=== PATIENT | female | born 1990 | race African-American/Black ===

== ENCOUNTER 2017-03-19 11:38 | Emergency (ER) | payer OTHER ==
[~2017-03-19] VITALS: Ht 165.1 cm; Wt 143.3 kg
[~2017-03-19 11:38] MED LIST: BACTRIM DS TAB1 EACH PO; IBUPROFEN 800800 MG PO; MEDROLDOSEPACK PO; NAPROSYN500 MG PO; NOHOMEMEDICATIONS; NORCO 5-325 TA1 EACH PO; NORFLEX100 MG PO; PREDNISONE 20 M20 MG PO; TRAMADOL 50 MG50 MG PO
[2017-03-19] MEDS ORDERED: MUCINEX600 MG PO (13:26)
== END 2017-03-19 13:50 | disposition home or self-care (01) ==
LOC: ER 11:38
DX: J06.9 Acute upper respiratory infection, unspecified (principal); F17.210 Nicotine dependence, cigarettes, uncomplicated

== ENCOUNTER 2020-03-10 13:54 | Emergency (ER) | payer OTHER ==
[~2020-03-10] VITALS: Ht 165.1 cm; Wt 140.6 kg
[~2020-03-10 13:54] MED LIST changes: +MUCINEX600 MG PO
[2020-03-10 15:54] LABS: URINE BILIRUBIN NEGATIVE (Negative); URINE BLOOD NEGATIVE (Negative); URINE CLARITY CLEAR; URINE COLOR YELLOW; URINE GLUCOSE-RANDOM* NEGATIVE (Negative); URINE KETONES NEGATIVE (Negative); URINE LEUKOCYTES-REFLEX NEGATIVE (Negative); URINE NITRITE-REFLEX NEGATIVE (Negative); URINE PROTEIN (DIPSTICK) NEGATIVE (Negative); URINE UROBILINOGEN 0.2 E.U./dl (0.2-1.0)
[2020-03-10 16:13] LABS: ABSOLUTE NEUTROPHILS 3.6 thou/uL (1.4-8.2); BASOPHILS 0.5 % (0.0-2.0); HEMATOCRIT 35.5 % (37.0-47.0); HEMOGLOBIN 11.6 gm/dL (12.0-15.0); LYMPHOCYTES 30.8 % (24.0-44.0); MCH 26.5 pg (26.0-34.0); MCHC 32.6 g/dL (28.0-37.0); MCV 81.1 fL (80.0-100.0); MONOCYTES 6.3 % (1.0-8.0); PLATELET COUNT 326 thou/uL (150-400); POLYS 59.4 % (36.0-66.0); RBC 4.38 mil/uL (4.20-5.00); RDW 15.4 % (10.5-14.5); WBC 6.1 thou/uL (4.0-11.0)
[2020-03-10 16:21] LABS: CALCIUM 9.2 mg/dL (8.5-10.1); CREATININE 0.9 mg/dL (0.6-1.0); POTASSIUM 3.8 mmol/L (3.5-5.1)
[2020-03-10] MEDS ORDERED: MAXALT10 MG PO (18:06)
[2020-03-10 18:17] VITALS: BP 128/77
== END 2020-03-10 18:35 | disposition home or self-care (01) ==
LOC: ER 13:54
PROVIDERS: Emergency Medicine
DX: R20.0 Anesthesia of skin (principal); T42.6X5A Adverse effect of other antiepileptic and sedative-hypnotic drugs, initial encounter; R61 Generalized hyperhidrosis; H53.8 Other visual disturbances; G43.909 Migraine, unspecified, not intractable, without status migrainosus; F17.210 Nicotine dependence, cigarettes, uncomplicated; Z98.890 Other specified postprocedural states; Z79.899 Other long term (current) drug therapy; Y92.89 Other specified places as the place of occurrence of the external cause

== ENCOUNTER 2020-05-29 13:36 | Emergency (ER) | payer OTHER ==
[~2020-05-29] VITALS: Ht 162.6 cm; Wt 149.7 kg
[~2020-05-29 13:36] MED LIST changes: +MAXALT10 MG PO
[2020-05-29] MEDS ORDERED: INDERAL LA 80 M80 M1 PO (13:58)
[2020-05-29] MEDS ORDERED: TOPAMAX 25 MG T25 M1 PO (13:58)
[2020-05-29 16:37] VITALS: BP 102/54
== END 2020-05-29 16:38 | disposition home or self-care (01) ==
LOC: ER 13:36
DX: G43.909 Migraine, unspecified, not intractable, without status migrainosus (principal); F17.210 Nicotine dependence, cigarettes, uncomplicated; Z79.899 Other long term (current) drug therapy; Z98.890 Other specified postprocedural states

== ENCOUNTER 2021-01-29 09:39 | Emergency (ER) | payer OTHER ==
[~2021-01-29] VITALS: Ht 162.6 cm; Wt 145.2 kg
[~2021-01-29 09:39] MED LIST changes: +INDERAL LA 80 M80 M1 PO; +TOPAMAX 25 MG T25 M1 PO
[2021-01-29 11:24] LABS: ABSOLUTE NEUTROPHILS 2.5 thou/uL (1.4-8.2); EOSINOPHILS 3.2 % (0.0-3.0); HEMATOCRIT 36.7 % (37.0-47.0); HEMOGLOBIN 11.7 gm/dL (12.0-15.0); LYMPHOCYTES 30.1 % (24.0-44.0); MCH 26.2 pg (26.0-34.0); MCHC 31.9 g/dL (28.0-37.0); MCV 82.1 fL (80.0-100.0); MONOCYTES 9.6 % (1.0-8.0); PLATELET COUNT 298 thou/uL (150-400); POLYS 56.1 % (36.0-66.0); RBC 4.47 mil/uL (4.20-5.00); RDW 15.4 % (10.5-14.5); WBC 4.4 thou/uL (4.0-11.0)
[2021-01-29 11:37] LABS: CALCIUM 8.8 mg/dL (8.5-10.1); CREATININE 0.9 mg/dL (0.6-1.0); POTASSIUM 3.9 mmol/L (3.5-5.1)
[2021-01-29 12:04] LABS: URINE BILIRUBIN NEGATIVE (Negative); URINE BLOOD NEGATIVE (Negative); URINE CLARITY CLEAR; URINE COLOR YELLOW; URINE GLUCOSE-RANDOM* NEGATIVE (Negative); URINE KETONES NEGATIVE (Negative); URINE LEUKOCYTES-REFLEX NEGATIVE (Negative); URINE NITRITE-REFLEX NEGATIVE (Negative); URINE PROTEIN (DIPSTICK) NEGATIVE (Negative); URINE SPECIFIC GRAVITY 1.015 (1.005-1.035); URINE UROBILINOGEN 0.2 E.U./dl (0.2-1.0)
[2021-01-29 13:35] VITALS: BP 136/96
--- NOTE | 2021-01-29 14:24 | EKG ---
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
== END 2021-01-29 13:36 | disposition home or self-care (01) ==
LOC: ER 09:39
PROVIDERS: Student in an Organized Health Care Education/Training Program
DX: R07.89 Other chest pain (principal); Z20.822 Contact with and (suspected) exposure to COVID-19; G43.909 Migraine, unspecified, not intractable, without status migrainosus; G47.30 Sleep apnea, unspecified; F17.210 Nicotine dependence, cigarettes, uncomplicated; Z79.899 Other long term (current) drug therapy